=== PATIENT | male | born 1950 | race Caucasian/White ===

== ENCOUNTER → 2017-08-01 | Day surgery (SDC) | payer OTHER, MEDICARE ==
[~2017-08-01] VITALS: Ht 195.6 cm; Wt 90.7 kg
[~2017-08-01] MED LIST: VITAMIN B-121000 MC3 PO
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
== END ==
LOC: STS 04:09
DX: S76.392A Other specified injury of muscle, fascia and tendon of the posterior muscle group at thigh level, left thigh, initial encounter (principal); Y93.55 Activity, bike riding
CPT/HCPCS: J0131; J0690; J2250; J3490